=== PATIENT | male | born 1960 | race Caucasian/White ===

== ENCOUNTER 2016-09-20 10:42 | Inpatient (IN) | payer OTHER ==
[2016-09-20 11:54] VITALS: BMI 20.7
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
[2016-09-20] MEDS ORDERED: P-EPHED 60MG/TRIPROLIDI 2.5MG TABLET PO PRN (13:45)
[2016-09-20] MEDS ORDERED: hydrOXYzine PAMOATE 25 MG CAPSULE (FP) PO PRN (13:45)
[2016-09-20] MEDS ORDERED: MAGNESIUM HYDROX 2400MG/30ML ORAL SUSPENSION 30 ML CUP PO PRN (13:45)
[2016-09-20] MEDS ORDERED: MAG HYDROX/AL HYDROX/SIMETH 30 ML UNIT-DOSE CUP PO PRN (13:45)
[2016-09-20] MEDS ORDERED: LOPERAMIDE HCL 2 MG CAPSULE PO PRN (13:45)
[2016-09-20] MEDS ORDERED: MENTHOL/PHENOL 1 EACH UD MM PRN (13:45)
[2016-09-20] MEDS ORDERED: MAGNESIUM CITRATE 300 ML BOTTLE PO PRN (13:45)
[2016-09-20] MEDS ORDERED: ACETAMINOPHEN 325 MG TABLET (FP) PO PRN (13:45)
[2016-09-20] MEDS ORDERED: IBUPROFEN 400 MG TABLET (FP) PO PRN (13:45)
[2016-09-20] MEDS: NICOTINE 21 MG/24 HOURS TOPICAL PATCH TD SCH (15:43)
[2016-09-20 19:23] LABS: MCH 31.4 pg (25.7-33.7); MCHC 32.1 g/dl (32.0-35.9); MEAN CELL VOLUME 97.8 fl (80-96); MEAN PLT VOLUME 8.2 fl (7.5-11.1); PLATELET COUNT 470 K/MM3 (134-434); RDW 12.7 % (11.9-15.9); URINE APPEARANCE CLEAR; URINE BILIRUBIN NEGATIVE (NEGATIVE); URINE BLOOD NEGATIVE (NEGATIVE); URINE COLOR LT. YELLOW; URINE GLUCOSE (UA) NEGATIVE (NEGATIVE); URINE KETONE 1+ (NEGATIVE); URINE LEUK ESTERASE NEGATIVE (NEGATIVE); URINE NITRITE NEGATIVE (NEGATIVE); URINE PROTEIN NEGATIVE (NEGATIVE); URINE UROBILINOGEN 0.2 E.U/dl E.U./dl (0.2-1.0); WHITE BLOOD COUNT 14.5 K/mm3 (4.0-10.0)
[2016-09-20 19:35] LABS: ALBUMIN 3.8 g/dl (3.4-5.0); ANION GAP 8 (8-16); CALCIUM 9.2 mg/dL (8.5-10.1); CO2 28 mmol/L (21-32); CREATININE 0.9 mg/dL (0.7-1.3); GLUCOSE,RANDOM 107 mg/dL (74-106); SGOT/AST 24 U/L (15-37); SGPT/ALT 30 U/L (12-78)
[2016-09-20 19:37] LABS: ALK PHOS 79 U/L (45-117); BILIRUBIN,TOTAL 0.5 mg/dL (0.2-1.0); TOT PROT 7.5 g/dl (6.4-8.2)
[2016-09-20] MEDS: diphenhydrAMINE HCL 50 MG CAPSULE PO PRN (21:29)
[2016-09-20] MEDS: THIAMINE HCL 100 MG TABLET (FP) PO SCH (21:29)
[2016-09-20] MEDS: guaiFENesin/D-METHORPHAN HB 10 ML UNIT-DOSE CUPS PO PRN (23:47)
[2016-09-21] MEDS: guaiFENesin/D-METHORPHAN HB 10 ML UNIT-DOSE CUPS PO PRN ×2 (06:39→22:06)
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
[2016-09-21] MEDS: PRENATAL VITAMINS W/ FOLIC ACID TABLET (FP) PO SCH (09:57)
[2016-09-21] MEDS: NICOTINE 21 MG/24 HOURS TOPICAL PATCH TD SCH (09:57)
--- NOTE | 2016-09-21 10:21 | EKG ---
Test Reason : Blood Pressure : / mmHG Vent. Rate : 079 BPM Atrial Rate : 079 BPM P-R Int : 144 ms QRS Dur : 126 ms QT Int : 408 ms P-R-T Axes : 060 014 061 degrees QTc Int : 467 ms NORMAL SINUS RHYTHM NON-SPECIFIC INTRA-VENTRICULAR CONDUCTION BLOCK ABNORMAL ECG NO PREVIOUS ECGS AVAILABLE Confirmed by JACIEL LAURA MD ([id number]) on 09/21/2016 10:20:41 AM Referred By: Confirmed By:JACIEL LAURA MD
[2016-09-21] MEDS: THIAMINE HCL 100 MG TABLET (FP) PO SCH (21:18)
[2016-09-21] MEDS: QUEtiapine FUMARATE 50 MG TABLET PO SCH (21:18)
[2016-09-21] MEDS: diphenhydrAMINE HCL 50 MG CAPSULE PO PRN (21:18)
[2016-09-22] MEDS: PRENATAL VITAMINS W/ FOLIC ACID TABLET (FP) PO SCH (09:55)
[2016-09-22] MEDS: NICOTINE 21 MG/24 HOURS TOPICAL PATCH TD SCH (09:55)
[2016-09-22] MEDS: QUEtiapine FUMARATE 50 MG TABLET PO SCH ×2 (09:55→21:49)
[2016-09-22] MEDS: guaiFENesin/D-METHORPHAN HB 10 ML UNIT-DOSE CUPS PO PRN (09:56)
[2016-09-22 10:09] LABS: BASOPHIL 0.4 % (0-2.0); EOSINOPHIL 2.7 % (0-4.5); MCH 32.4 pg (25.7-33.7); MCHC 32.9 g/dl (32.0-35.9); MEAN CELL VOLUME 98.5 fl (80-96); MEAN PLT VOLUME 7.6 fl (7.5-11.1); NEUTROPHILS 59.4 % (42.8-82.8); PLATELET COUNT 540 K/MM3 (134-434); RDW 12.9 % (11.9-15.9); WHITE BLOOD COUNT 9.4 K/mm3 (4.0-10.0)
[2016-09-22] MEDS: THIAMINE HCL 100 MG TABLET (FP) PO SCH (21:49)
[2016-09-22] MEDS: diphenhydrAMINE HCL 50 MG CAPSULE PO PRN (21:49)
[2016-09-23] MEDS: PRENATAL VITAMINS W/ FOLIC ACID TABLET (FP) PO SCH (09:48)
[2016-09-23] MEDS: QUEtiapine FUMARATE 50 MG TABLET PO SCH ×2 (09:48→21:44)
[2016-09-23] MEDS: NICOTINE 21 MG/24 HOURS TOPICAL PATCH TD SCH (09:49)
[2016-09-23] MEDS: guaiFENesin/D-METHORPHAN HB 10 ML UNIT-DOSE CUPS PO PRN ×2 (09:50→21:45)
[2016-09-23] MEDS: THIAMINE HCL 100 MG TABLET (FP) PO SCH (21:44)
[2016-09-24] MEDS: PRENATAL VITAMINS W/ FOLIC ACID TABLET (FP) PO SCH (09:53)
[2016-09-24] MEDS: QUEtiapine FUMARATE 50 MG TABLET PO SCH ×2 (09:54→21:30)
[2016-09-24] MEDS: NICOTINE 21 MG/24 HOURS TOPICAL PATCH TD SCH (09:54)
[2016-09-24] MEDS: THIAMINE HCL 100 MG TABLET (FP) PO SCH (21:30)
[2016-09-25] MEDS: PRENATAL VITAMINS W/ FOLIC ACID TABLET (FP) PO SCH (10:14)
[2016-09-25] MEDS: NICOTINE 21 MG/24 HOURS TOPICAL PATCH TD SCH (10:14)
[2016-09-25] MEDS: QUEtiapine FUMARATE 50 MG TABLET PO SCH ×2 (10:14→21:05)
[2016-09-25] MEDS: THIAMINE HCL 100 MG TABLET (FP) PO SCH (21:05)
[2016-09-26 07:18] VITALS: BP 119/63; PULSE 66; TEMP 97.5
[2016-09-26] MEDS: PRENATAL VITAMINS W/ FOLIC ACID TABLET (FP) PO SCH (10:04)
[2016-09-26] MEDS: NICOTINE 21 MG/24 HOURS TOPICAL PATCH TD SCH (10:04)
[2016-09-26] MEDS: QUEtiapine FUMARATE 50 MG TABLET PO SCH (10:05)
--- NOTE | 2016-09-26 13:47 | PN ---
S Progress Note Note: patient left treatment ama, scripts forwarded to his pharmacy, patient did not want to wait for the psychiatrist.
== END 2016-09-26 10:55 | disposition left against medical advice (07) | DRG 894 ==
LOC: YASAS 10:42 → Y5N 13:49
PROVIDERS: ADMIT Psychiatry & Neurology Psychiatry; ATTEND Psychiatry & Neurology Psychiatry
PROC: HZ42ZZZ Group Counseling for Substance Abuse Treatment, Cognitive-Behavioral (ICD-10-PCS; principal; 2016-09-20)
DX: F10.230 Alcohol dependence with withdrawal, uncomplicated (principal); F14.20 Cocaine dependence, uncomplicated; F31.81 Bipolar II disorder; F17.210 Nicotine dependence, cigarettes, uncomplicated; F43.10 Post-traumatic stress disorder, unspecified; G47.00 Insomnia, unspecified
CPT/HCPCS: 36415; 80053; 81003; 85025; 85027; 86593; 93005; 93010

== ENCOUNTER 2018-11-17 12:27 | Inpatient (IN) | payer OTHER ==
[2018-11-17 15:40] VITALS: BMI 23.6
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
[2018-11-17] MEDS ORDERED: MAGNESIUM HYDROX 2400MG/30ML ORAL SUSPENSION 30 ML CUP PO PRN (17:46)
[2018-11-17] MEDS ORDERED: DICYCLOMINE HCL 10 MG CAPSULE PO PRN (17:46)
[2018-11-17] MEDS ORDERED: MAGNESIUM CITRATE 300 ML BOTTLE PO PRN (17:46)
[2018-11-17] MEDS ORDERED: MAG HYDROX/AL HYDROX/SIMETH 30 ML UNIT-DOSE CUP PO PRN (17:46)
[2018-11-17] MEDS ORDERED: NICOTINE POLACRILEX 2 MG GUM BUC PRN (17:46)
[2018-11-17] MEDS ORDERED: chlordiazePOXIDE HCL 25 MG CAPSULE PO PRN (17:46)
[2018-11-17] MEDS ORDERED: IBUPROFEN 400 MG TABLET (FP) PO PRN (17:46)
[2018-11-17] MEDS ORDERED: MENTHOL/PHENOL 1 EACH UD MM PRN (17:46)
[2018-11-17] MEDS ORDERED: ACETAMINOPHEN 325 MG TABLET (FP) PO PRN ×2 (17:46)
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
[2018-11-17] MEDS ORDERED: QUEtiapine FUMARATE 50 MG TABLET PO SCH (22:00)
[2018-11-17] MEDS: chlordiazePOXIDE HCL 25 MG CAPSULE PO SCH (22:46)
[2018-11-17] MEDS: THIAMINE HCL 100 MG TABLET (FP) PO SCH (22:46)
[2018-11-17] MEDS: MELATONIN 5 MG TABLETS PO PRN (22:48)
[2018-11-18] MEDS: chlordiazePOXIDE HCL 25 MG CAPSULE PO SCH ×4 (07:21→22:15)
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
[2018-11-18] MEDS ORDERED: hydrOXYzine PAMOATE 50 MG CAPSULE (FP) PO PRN (09:46)
[2018-11-18] MEDS: PRENATAL VITAMINS W/ FOLIC ACID TABLET (FP) PO SCH (10:14)
[2018-11-18 11:07] LABS: ALBUMIN 3.8 g/dl (3.4-5.0); ALK PHOS 67 U/L (45-117); ANION GAP 7 MMOL/L (8-16); BILIRUBIN,TOTAL 0.6 mg/dL (0.2-1); BLOOD UREA NITROGEN 21 mg/dL (7-18); CALCIUM 8.9 mg/dL (8.5-10.1); CHLORIDE 103 mmol/L (98-107); CO2 30 mmol/L (21-32); CREATININE 1.1 mg/dL (0.55-1.3); GLUCOSE,RANDOM 84 mg/dL (74-106); POTASSIUM 3.9 mmol/L (3.5-5.1); SGOT/AST 37 U/L (15-37); SGPT/ALT 32 U/L (13-61); SODIUM 140 mmol/L (136-145); TOT PROT 6.7 g/dl (6.4-8.2)
[2018-11-18 11:29] LABS: HEMATOCRIT 37.7 % (35.4-49); MCH 33.6 pg (25.7-33.7); MCHC 34.5 g/dl (32.0-35.9); MEAN CELL VOLUME 97.4 fl (80-96); MEAN PLT VOLUME 7.8 fl (7.5-11.1); PLATELET COUNT 324 K/MM3 (134-434); RBC 3.87 M/mm3 (4.00-5.60); RDW 12.8 % (11.9-15.9); WHITE BLOOD COUNT 10.1 K/mm3 (4.0-10.0)
--- NOTE | 2018-11-18 15:16 | PN ---
[facility] CIWA - CIWA Score Nausea/Vomitin-Mild Nausea/No Vomiting Muscle Tremors: 4-Moderate,w/Arms Extend Anxiety: 3 Agitation: 4-Moderately Restless Paroxysmal Sweats: 1-Minimal Palms Moist Orientation: 3-Disoriented Date>2 days Tacttile Disturbances: 0-None Auditory Disturbances: 0-None Visual Disturbances: 0-None Headache: 1-Very Mild CIWA-Ar Total Score: 17 BHS Progress Note (SOAP) Subjective: tremor sweating restlessness mild headache otherwise doing ok Objective: 11/18/18 15:15 Vital Signs Temperature 96.1 F L 11/18/18 13:15 Pulse Rate 78 11/18/18 13:15 Respiratory Rate 18 11/18/18 13:15 Blood Pressure 111/68 11/18/18 13:15 O2 Sat by Pulse Oximetry (%) Laboratory Last Values WBC 10.1 K/mm3 (4.0-10.0) H 11/18/18 08:00 RBC 3.87 M/mm3 (4.00-5.60) L 11/18/18 08:00 Hgb 13.0 GM/dL (11.7-16.9) 11/18/18 08:00 Hct 37.7 % (35.4-49) 11/18/18 08:00 MCV 97.4 fl (80-96) H 11/18/18 08:00 MCH 33.6 pg (25.7-33.7) 11/18/18 08:00 MCHC 34.5 g/dl (32.0-35.9) 11/18/18 08:00 RDW 12.8 % (11.9-15.9) 11/18/18 08:00 Plt Count 324 K/MM3 (134-434) D 11/18/18 08:00 MPV 7.8 fl (7.5-11.1) 11/18/18 08:00 Sodium 140 mmol/L (136-145) 11/18/18 08:00 Potassium 3.9 mmol/L (3.5-5.1) 11/18/18 08:00 Chloride 103 mmol/L (98-107) 11/18/18 08:00 Carbon Dioxide 30 mmol/L (21-32) 11/18/18 08:00 Anion Gap 7 MMOL/L (8-16) L 11/18/18 08:00 BUN 21 mg/dL (7-18) H 11/18/18 08:00 Creatinine 1.1 mg/dL (0.55-1.3) 11/18/18 08:00 Creat Clearance w eGFR > 60 (>60) 11/18/18 08:00 Random Glucose 84 mg/dL (74-106) 11/18/18 08:00 Calcium 8.9 mg/dL (8.5-10.1) 11/18/18 08:00 Total Bilirubin 0.6 mg/dL (0.2-1) 11/18/18 08:00 AST 37 U/L (15-37) 11/18/18 08:00 ALT 32 U/L (13-61) 11/18/18 08:00 Alkaline Phosphatase 67 U/L (45-117) 11/18/18 08:00 Total Protein 6.7 g/dl (6.4-8.2) 11/18/18 08:00 Albumin 3.8 g/dl (3.4-5.0) 11/18/18 08:00 lab noted Assessment: 11/18/18 15:15 alcohol withdrawal sx Plan: continue detox
[2018-11-18] MEDS: QUEtiapine FUMARATE 100 MG TABLET (FP) PO SCH (22:15)
[2018-11-18] MEDS: MELATONIN 5 MG TABLETS PO PRN (22:15)
[2018-11-18] MEDS: THIAMINE HCL 100 MG TABLET (FP) PO SCH (22:15)
[2018-11-19] MEDS: chlordiazePOXIDE HCL 25 MG CAPSULE PO SCH ×3 (06:02→18:05)
[2018-11-19] MEDS: PRENATAL VITAMINS W/ FOLIC ACID TABLET (FP) PO SCH (10:22)
--- NOTE | 2018-11-19 10:31 | PN ---
S CIWA - CIWA Score Nausea/Vomitin-Mild Nausea/No Vomiting Muscle Tremors: 3 Anxiety: 2 Agitation: 3 Paroxysmal Sweats: 1-Minimal Palms Moist Orientation: 1-Uncertain about Date Tacttile Disturbances: 0-None Auditory Disturbances: 0-None Visual Disturbances: 0-None Headache: 1-Very Mild CIWA-Ar Total Score: 12 S Progress Note (SOAP) Subjective: tremor sweating anxiousness headaches Objective: 11/19/18 10:39 Vital Signs Temperature 98.0 F 11/19/18 09:53 Pulse Rate 86 11/19/18 09:53 Respiratory Rate 16 11/19/18 09:53 Blood Pressure 102/62 11/19/18 09:53 O2 Sat by Pulse Oximetry (%) Laboratory Last Values WBC 10.1 K/mm3 (4.0-10.0) H 11/18/18 08:00 RBC 3.87 M/mm3 (4.00-5.60) L 11/18/18 08:00 Hgb 13.0 GM/dL (11.7-16.9) 11/18/18 08:00 Hct 37.7 % (35.4-49) 11/18/18 08:00 MCV 97.4 fl (80-96) H 11/18/18 08:00 MCH 33.6 pg (25.7-33.7) 11/18/18 08:00 MCHC 34.5 g/dl (32.0-35.9) 11/18/18 08:00 RDW 12.8 % (11.9-15.9) 11/18/18 08:00 Plt Count 324 K/MM3 (134-434) D 11/18/18 08:00 MPV 7.8 fl (7.5-11.1) 11/18/18 08:00 Sodium 140 mmol/L (136-145) 11/18/18 08:00 Potassium 3.9 mmol/L (3.5-5.1) 11/18/18 08:00 Chloride 103 mmol/L (98-107) 11/18/18 08:00 Carbon Dioxide 30 mmol/L (21-32) 11/18/18 08:00 Anion Gap 7 MMOL/L (8-16) L 11/18/18 08:00 BUN 21 mg/dL (7-18) H 11/18/18 08:00 Creatinine 1.1 mg/dL (0.55-1.3) 11/18/18 08:00 Creat Clearance w eGFR > 60 (>60) 11/18/18 08:00 Random Glucose 84 mg/dL (74-106) 11/18/18 08:00 Calcium 8.9 mg/dL (8.5-10.1) 11/18/18 08:00 Total Bilirubin 0.6 mg/dL (0.2-1) 11/18/18 08:00 AST 37 U/L (15-37) 11/18/18 08:00 ALT 32 U/L (13-61) 11/18/18 08:00 Alkaline Phosphatase 67 U/L (45-117) 11/18/18 08:00 Total Protein 6.7 g/dl (6.4-8.2) 11/18/18 08:00 Albumin 3.8 g/dl (3.4-5.0) 11/18/18 08:00 RPR Titer Nonreactive (NONREACTIVE) 11/18/18 08:00 lab noted Assessment: 11/19/18 10:40 alcohol withdrawal sx Plan: continue detox
[2018-11-19] MEDS: THIAMINE HCL 100 MG TABLET (FP) PO SCH (22:06)
[2018-11-19] MEDS: QUEtiapine FUMARATE 100 MG TABLET (FP) PO SCH (22:06)
[2018-11-19] MEDS: MELATONIN 5 MG TABLETS PO PRN (22:06)
[2018-11-19] MEDS: chlordiazePOXIDE HCL 10 MG CAPSULE PO SCH (22:06)
[2018-11-19] MEDS ORDERED: chlordiazePOXIDE HCL 10 MG CAPSULE PO PRN (23:00)
[2018-11-20] MEDS: chlordiazePOXIDE HCL 10 MG CAPSULE PO SCH ×2 (06:32→11:07)
[2018-11-20] MEDS: PRENATAL VITAMINS W/ FOLIC ACID TABLET (FP) PO SCH (10:33)
--- NOTE | 2018-11-20 10:54 | PN ---
[facility] CIWA - CIWA Score Nausea/Vomitin-Mild Nausea/No Vomiting Muscle Tremors: 1-None Visible, but [place] Anxiety: 1-Mildly Anxious Agitation: 1-Slight > Activity Paroxysmal Sweats: 1-Minimal Palms Moist Orientation: 1-Uncertain about Date Tacttile Disturbances: 0-None Auditory Disturbances: 0-None Visual Disturbances: 0-None Headache: 1-Very Mild CIWA-Ar Total Score: 7 S Progress Note (SOAP) Subjective: feeling better less tremor mild sweating more energy discuss aftercare with staff Objective: 11/20/18 10:55 Vital Signs Temperature 96.1 F L 11/20/18 09:41 Pulse Rate 79 11/20/18 09:41 Respiratory Rate 18 11/20/18 09:41 Blood Pressure 92/52 L 11/20/18 09:41 O2 Sat by Pulse Oximetry (%) Laboratory Last Values WBC 10.1 K/mm3 (4.0-10.0) H 11/18/18 08:00 RBC 3.87 M/mm3 (4.00-5.60) L 11/18/18 08:00 Hgb 13.0 GM/dL (11.7-16.9) 11/18/18 08:00 Hct 37.7 % (35.4-49) 11/18/18 08:00 MCV 97.4 fl (80-96) H 11/18/18 08:00 MCH 33.6 pg (25.7-33.7) 11/18/18 08:00 MCHC 34.5 g/dl (32.0-35.9) 11/18/18 08:00 RDW 12.8 % (11.9-15.9) 11/18/18 08:00 Plt Count 324 K/MM3 (134-434) D 11/18/18 08:00 MPV 7.8 fl (7.5-11.1) 11/18/18 08:00 Sodium 140 mmol/L (136-145) 11/18/18 08:00 Potassium 3.9 mmol/L (3.5-5.1) 11/18/18 08:00 Chloride 103 mmol/L (98-107) 11/18/18 08:00 Carbon Dioxide 30 mmol/L (21-32) 11/18/18 08:00 Anion Gap 7 MMOL/L (8-16) L 11/18/18 08:00 BUN 21 mg/dL (7-18) H 11/18/18 08:00 Creatinine 1.1 mg/dL (0.55-1.3) 11/18/18 08:00 Creat Clearance w eGFR > 60 (>60) 11/18/18 08:00 Random Glucose 84 mg/dL (74-106) 11/18/18 08:00 Calcium 8.9 mg/dL (8.5-10.1) 11/18/18 08:00 Total Bilirubin 0.6 mg/dL (0.2-1) 11/18/18 08:00 AST 37 U/L (15-37) 11/18/18 08:00 ALT 32 U/L (13-61) 11/18/18 08:00 Alkaline Phosphatase 67 U/L (45-117) 11/18/18 08:00 Total Protein 6.7 g/dl (6.4-8.2) 11/18/18 08:00 Albumin 3.8 g/dl (3.4-5.0) 11/18/18 08:00 RPR Titer Nonreactive (NONREACTIVE) 11/18/18 08:00 lab noted Assessment: 11/20/18 10:56 mild alcohol withdrawal sx Plan: continue detox
--- NOTE | 2018-11-20 11:46 | DS ---
[facility] Detox Discharge Summary Admission Date: 11/17/18 Discharge Date: 11/20/18 - History Present History: Alcohol Dependence Additional Comments: 58 years old male admitted on 11/17/18 for alcohol withdrawal stabilization feeling better today preferred to begin alcohol rehab today and taking care of family issues alert no acute distress denies suicidal ideation patient has confident maintaining sober through community self help support patient agrees to utilize [facility] services for medical and mental issues - Physical Exam Results Vital Signs: Vital Signs Temperature 96.1 F L 11/20/18 09:41 Pulse Rate 79 11/20/18 09:41 Respiratory Rate 18 11/20/18 09:41 Blood Pressure 92/52 L 11/20/18 09:41 O2 Sat by Pulse Oximetry (%) Pertinent Admission Physical Exam Findings: alcohol withdrawal sx Laboratory Last Values WBC 10.1 K/mm3 (4.0-10.0) H 11/18/18 08:00 RBC 3.87 M/mm3 (4.00-5.60) L 11/18/18 08:00 Hgb 13.0 GM/dL (11.7-16.9) 11/18/18 08:00 Hct 37.7 % (35.4-49) 11/18/18 08:00 MCV 97.4 fl (80-96) H 11/18/18 08:00 MCH 33.6 pg (25.7-33.7) 11/18/18 08:00 MCHC 34.5 g/dl (32.0-35.9) 11/18/18 08:00 RDW 12.8 % (11.9-15.9) 11/18/18 08:00 Plt Count 324 K/MM3 (134-434) D 11/18/18 08:00 MPV 7.8 fl (7.5-11.1) 11/18/18 08:00 Sodium 140 mmol/L (136-145) 11/18/18 08:00 Potassium 3.9 mmol/L (3.5-5.1) 11/18/18 08:00 Chloride 103 mmol/L (98-107) 11/18/18 08:00 Carbon Dioxide 30 mmol/L (21-32) 11/18/18 08:00 Anion Gap 7 MMOL/L (8-16) L 11/18/18 08:00 BUN 21 mg/dL (7-18) H 11/18/18 08:00 Creatinine 1.1 mg/dL (0.55-1.3) 11/18/18 08:00 Creat Clearance w eGFR > 60 (>60) 11/18/18 08:00 Random Glucose 84 mg/dL (74-106) 11/18/18 08:00 Calcium 8.9 mg/dL (8.5-10.1) 11/18/18 08:00 Total Bilirubin 0.6 mg/dL (0.2-1) 11/18/18 08:00 AST 37 U/L (15-37) 11/18/18 08:00 ALT 32 U/L (13-61) 11/18/18 08:00 Alkaline Phosphatase 67 U/L (45-117) 11/18/18 08:00 Total Protein 6.7 g/dl (6.4-8.2) 11/18/18 08:00 Albumin 3.8 g/dl (3.4-5.0) 11/18/18 08:00 RPR Titer Nonreactive (NONREACTIVE) 11/18/18 08:00 lab noted - Treatment Hospital Course: Detox Protocol Followed, Detoxed Safely, Responded well, Discharged Condition Good, Rehab Referral Accepted Patient has Accepted a Rehab Referral to: community self help - Medication Discharge Medications: Ambulatory Orders Quetiapine Fumarate [Seroquel -] 50 mg PO BID #60 tablet 09/26/16 - Diagnosis (1) Alcohol dependence with uncomplicated withdrawal Current Visit: Yes Status: Acute (2) Substance induced mood disorder Current Visit: Yes Status: Suspected (3) Nicotine dependence Current Visit: Yes Status: Acute Qualifiers: Nicotine product type: cigarettes Substance use status: in withdrawal Qualified Code(s): F17.213 - Nicotine dependence, cigarettes, with withdrawal (4) Weight loss Current Visit: Yes Status: Acute (5) Bipolar II disorder Current Visit: Yes Status: Suspected - AMA Did Patient Leave Against Medical Advice: No
[2018-11-20 13:23] VITALS: BP 116/75; PULSE 88; TEMP 96.2
[2018-11-20] MEDS ORDERED: chlordiazePOXIDE HCL 10 MG CAPSULE PO SCH (23:00)
== END 2018-11-20 12:25 | disposition home or self-care (01) | DRG 897 ==
LOC: YASAS 12:27 → Y3N 20:20
PROVIDERS: ADMIT Surgery; ATTEND Surgery
PROC: HZ2ZZZZ Detoxification Services for Substance Abuse Treatment (ICD-10-PCS; principal; 2018-11-17)
DX: F10.230 Alcohol dependence with withdrawal, uncomplicated (principal); F14.20 Cocaine dependence, uncomplicated; F19.282 Other psychoactive substance dependence with psychoactive substance-induced sleep disorder; F31.81 Bipolar II disorder; F17.210 Nicotine dependence, cigarettes, uncomplicated; F19.24 Other psychoactive substance dependence with psychoactive substance-induced mood disorder; F43.10 Post-traumatic stress disorder, unspecified; R63.4 Abnormal weight loss; Z68.23 Body mass index [BMI] 23.0-23.9, adult; Z92.29 Personal history of other drug therapy
CPT/HCPCS: 36415; 71046-TC-FY; 80053; 85027; 86593

== ENCOUNTER 2019-06-13 11:53 | Inpatient (IN) | payer OTHER ==
[2019-06-13 13:46] VITALS: BMI 21.2
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
[2019-06-13] MEDS ORDERED: hydrOXYzine PAMOATE 25 MG CAPSULE (FP) PO PRN (15:02)
[2019-06-13] MEDS ORDERED: MAG HYDROX/AL HYDROX/SIMETH 30 ML UNIT-DOSE CUP PO PRN (15:02)
[2019-06-13] MEDS ORDERED: ACETAMINOPHEN 325 MG TABLET (FP) PO PRN ×2 (15:02)
[2019-06-13] MEDS ORDERED: IBUPROFEN 400 MG TABLET (FP) PO PRN (15:02)
[2019-06-13] MEDS ORDERED: BISMUTH SUBSALICYLATE 524 MG/30 ML UD PO PRN (15:02)
[2019-06-13] MEDS ORDERED: MAGNESIUM CITRATE 300 ML BOTTLE PO PRN (15:02)
[2019-06-13] MEDS ORDERED: MENTHOL/PHENOL 1 EACH UD MM PRN (15:02)
[2019-06-13] MEDS ORDERED: MAGNESIUM HYDROX 2400MG/30ML ORAL SUSPENSION 30 ML CUP PO PRN (15:02)
[2019-06-13] MEDS ORDERED: chlordiazePOXIDE HCL 10 MG CAPSULE PO PRN (15:03)
[2019-06-13] MEDS: THIAMINE HCL 100 MG TABLET (FP) PO SCH (21:51)
[2019-06-13] MEDS: MELATONIN 5 MG TABLETS PO PRN (21:51)
[2019-06-13] MEDS: chlordiazePOXIDE HCL 25 MG CAPSULE PO SCH (21:51)
[2019-06-14] MEDS: chlordiazePOXIDE HCL 25 MG CAPSULE PO SCH ×3 (06:19→20:55)
[2019-06-14] MEDS: PRENATAL VITAMINS W/ FOLIC ACID TABLET (FP) PO SCH (09:55)
[2019-06-14 10:36] LABS: HEMATOCRIT 42.5 % (35.4-49); HEMOGLOBIN 14.2 GM/dL (11.7-16.9); MCH 33.4 pg (25.7-33.7); MCHC 33.5 g/dl (32.0-35.9); MEAN CELL VOLUME 99.7 fl (80-96); PLATELET COUNT 389 K/MM3 (134-434); RBC 4.26 M/mm3 (4.00-5.60); RDW 12.8 % (11.9-15.9); WHITE BLOOD COUNT 6.2 K/mm3 (4.0-10.0)
[2019-06-14 10:43] LABS: ALBUMIN 3.5 g/dl (3.4-5.0); BILIRUBIN,TOTAL 0.7 mg/dL (0.2-1); BLOOD UREA NITROGEN 13.4 mg/dL (7-18); CALCIUM 9.3 mg/dL (8.5-10.1); CREATININE 0.9 mg/dL (0.55-1.3); TOT PROT 6.5 g/dl (6.4-8.2)
--- NOTE | 2019-06-14 11:37 | PN ---
S CIWA - CIWA Score Nausea/Vomitin-No Nausea/No Vomiting Muscle Tremors: 3 Anxiety: 3 Agitation: 3 Paroxysmal Sweats: 2 Orientation: 0-Oriented Tacttile Disturbances: 0-None Auditory Disturbances: 0-None Visual Disturbances: 0-None Headache: 0-None Present CIWA-Ar Total Score: 11 BHS Progress Note (SOAP) Subjective: sweats shakes interrupted sleep body aches I need to see psych for my ptsd Objective: 06/14/19 11:35 Vital Signs Temperature 98.1 F 06/14/19 10:15 Pulse Rate 82 06/14/19 10:15 Respiratory Rate 18 06/14/19 10:15 Blood Pressure 114/65 06/14/19 10:15 O2 Sat by Pulse Oximetry (%) Laboratory Tests 06/14/19 06/14/19 08:00 08:00 WBC 6.2 RBC 4.26 Hgb 14.2 Hct 42.5 MCV 99.7 H MCH 33.4 MCHC 33.5 RDW 12.8 Plt Count 389 D MPV 8.0 Sodium 140 Potassium 5.0 Chloride 106 Carbon Dioxide 28 Anion Gap 6 L BUN 13.4 Creatinine 0.9 Est GFR (CKD-EPI)AfAm 108.73 Est GFR (CKD-EPI)NonAf 93.82 Random Glucose 85 Calcium 9.3 Total Bilirubin 0.7 AST 16 ALT 20 Alkaline Phosphatase 70 Total Protein 6.5 Albumin 3.5 labs noted aaox3 ambulating no acute distress Assessment: 06/14/19 11:36 withdrawals Plan: continue detox increase fluids pending labs
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
[2019-06-14] MEDS: MELATONIN 5 MG TABLETS PO PRN (20:54)
[2019-06-14] MEDS: QUEtiapine FUMARATE 50 MG TABLET PO SCH (21:10)
[2019-06-14] MEDS: THIAMINE HCL 100 MG TABLET (FP) PO SCH (21:10)
[2019-06-15] MEDS: chlordiazePOXIDE 5 MG CAPSULE PO SCH ×3 (06:46→22:00)
[2019-06-15] MEDS: PRENATAL VITAMINS W/ FOLIC ACID TABLET (FP) PO SCH (10:30)
--- NOTE | 2019-06-15 12:58 | PN ---
S CIWA - CIWA Score Nausea/Vomitin-No Nausea/No Vomiting Muscle Tremors: None Anxiety: 2 Agitation: 0-Normal Activity Paroxysmal Sweats: 2 Orientation: 0-Oriented Tacttile Disturbances: 0-None Auditory Disturbances: 0-None Visual Disturbances: 0-None Headache: 2-Mild CIWA-Ar Total Score: 6 BHS Progress Note (SOAP) Subjective: c/o headache, sweats, and anxiety. Objective: 06/15/19 12:57 Vital Signs 06/15/19 06/15/19 06:00 09:41 Temperature 97.9 F 97.1 F L Pulse Rate 63 50 L Respiratory 16 18 Rate Blood Pressure 100/58 L 127/74 Lab Results WBC 6.2 K/mm3 (4.0-10.0) 06/14/19 08:00 RBC 4.26 M/mm3 (4.00-5.60) 06/14/19 08:00 Hgb 14.2 GM/dL (11.7-16.9) 06/14/19 08:00 Hct 42.5 % (35.4-49) 06/14/19 08:00 MCV 99.7 fl (80-96) H 06/14/19 08:00 MCHC 33.5 g/dl (32.0-35.9) 06/14/19 08:00 RDW 12.8 % (11.9-15.9) 06/14/19 08:00 Plt Count 389 K/MM3 (134-434) D 06/14/19 08:00 Sodium 140 mmol/L (136-145) 06/14/19 08:00 Potassium 5.0 mmol/L (3.5-5.1) 06/14/19 08:00 Chloride 106 mmol/L (98-107) 06/14/19 08:00 Carbon Dioxide 28 mmol/L (21-32) 06/14/19 08:00 Anion Gap 6 MMOL/L (8-16) L 06/14/19 08:00 BUN 13.4 mg/dL (7-18) 06/14/19 08:00 Creatinine 0.9 mg/dL (0.55-1.3) 06/14/19 08:00 Random Glucose 85 mg/dL (74-106) 06/14/19 08:00 Calcium 9.3 mg/dL (8.5-10.1) 06/14/19 08:00 Labs noted. Assessment: 06/15/19 12:58 AOX3, in no acute respiratory distress. Full ROM, ambulating in the unit. Withdrawal symptoms. For discharge tomorrow. 06/15/19 12:58 Plan: continue detox. D/C in AM.
--- NOTE | 2019-06-15 17:03 | PN ---
S Progress Note Note: Psychiatric nurse practitioner note: Patient scheduled for discharge tomorrow. A 30 day script of seroquel 50mg HS was electronically sent to [facility] [address] [place] [address].
[2019-06-15] MEDS: QUEtiapine FUMARATE 50 MG TABLET PO SCH (22:00)
[2019-06-15] MEDS: THIAMINE HCL 100 MG TABLET (FP) PO SCH (22:00)
[2019-06-15] MEDS: MELATONIN 5 MG TABLETS PO PRN (22:01)
[2019-06-16] MEDS ORDERED: chlordiazePOXIDE HCL 10 MG CAPSULE PO ONE (05:00)
[2019-06-16 06:24] VITALS: BP 122/75; PULSE 64; TEMP 97.3
[2019-06-16] MEDS: PRENATAL VITAMINS W/ FOLIC ACID TABLET (FP) PO SCH (10:23)
--- NOTE | 2019-06-16 14:17 | PN ---
[facility] CIWA - CIWA Score Nausea/Vomitin-No Nausea/No Vomiting Muscle Tremors: 1-None Visible, but [place] Anxiety: 1-Mildly Anxious Agitation: 0-Normal Activity Paroxysmal Sweats: No Perspiration Orientation: 0-Oriented Tacttile Disturbances: 0-None Auditory Disturbances: 0-None Visual Disturbances: 0-None Headache: 0-None Present CIWA-Ar Total Score: 2 BHS Progress Note (SOAP) Subjective: no complaint offered Objective: 06/16/19 14:16 Vital Signs Temperature 97.3 F L 06/16/19 06:00 Pulse Rate 64 06/16/19 06:00 Respiratory Rate 16 06/16/19 06:00 Blood Pressure 122/75 06/16/19 06:00 O2 Sat by Pulse Oximetry (%) Assessment: 06/16/19 14:16 detox completed Plan: continue detox
--- NOTE | 2019-06-16 14:22 | DS ---
[facility] Detox Discharge Summary Admission Date: 06/13/19 Discharge Date: 06/16/19 - History Additional Comments: patient completed detox For d/c, will continue aftercare by attending AA meetings. Gait steady, in no distress. Reminded patient to pick his seroquel from the pharmacy, he verbalizede understanding. Denies any other need for med refil. - Physical Exam Results Vital Signs: Vital Signs Temperature 97.3 F L 06/16/19 06:00 Pulse Rate 64 06/16/19 06:00 Respiratory Rate 16 06/16/19 06:00 Blood Pressure 122/75 06/16/19 06:00 O2 Sat by Pulse Oximetry (%) Pertinent Admission Physical Exam Findings: withdrawal sx - Treatment Hospital Course: Detox Protocol Followed, Detoxed Safely, Responded well, Discharged Condition Good - Medication Discharge Medications: Ambulatory Orders Quetiapine Fumarate [Seroquel -] 50 mg PO BID #60 tablet 09/26/16 Quetiapine Fumarate [Seroquel -] 50 mg PO HS #30 tablet 06/15/19 - Diagnosis (1) Alcohol dependence with uncomplicated withdrawal Status: Acute (2) Amphetamine dependence Status: Acute (3) Substance-induced sleep disorder Status: Acute (4) Weight loss Status: Acute (5) Cocaine dependence Status: Chronic Qualifiers: Substance use status: uncomplicated Qualified Code(s): F14.20 - Cocaine dependence, uncomplicated (6) Depression Status: Chronic (7) Insomnia Status: Chronic Qualifiers: Insomnia type: alcohol-induced Qualified Code(s): F10.982 - Alcohol use, unspecified with alcohol-induced sleep disorder (8) Mood disorder Status: Chronic (9) Nicotine dependence Status: Chronic Qualifiers: Nicotine product type: cigarettes (10) PTSD (post-traumatic stress disorder) Status: Chronic - AMA Did Patient Leave Against Medical Advice: No
== END 2019-06-16 12:30 | disposition home or self-care (01) | DRG 897 ==
LOC: YASAS 11:53 → Y6N 16:40
PROVIDERS: ADMIT Surgery; ATTEND Surgery
PROC: HZ2ZZZZ Detoxification Services for Substance Abuse Treatment (ICD-10-PCS; principal; 2019-06-13)
DX: F10.230 Alcohol dependence with withdrawal, uncomplicated (principal); F15.20 Other stimulant dependence, uncomplicated; F14.20 Cocaine dependence, uncomplicated; F19.282 Other psychoactive substance dependence with psychoactive substance-induced sleep disorder; F10.220 Alcohol dependence with intoxication, uncomplicated; F10.282 Alcohol dependence with alcohol-induced sleep disorder; F17.210 Nicotine dependence, cigarettes, uncomplicated; F39 Unspecified mood [affective] disorder; F43.10 Post-traumatic stress disorder, unspecified; F32.9 Major depressive disorder, single episode, unspecified; R63.4 Abnormal weight loss; Z91.013 Allergy to seafood
CPT/HCPCS: 36415; 80053; 85027; 86593

== ENCOUNTER 2020-03-09 11:02 | Inpatient (IN) | payer OTHER ==
--- NOTE | 2020-03-09 11:21 | BHS.RME ---
Substance Use & Tx History - Substance Use History Alcohol Substance amount: 2 pints Vodka, 20 x 12 ounce beer Frequency of use: Daily Substance route: Oral Date of Last Use: 03/09/20 (Began age 12 y. No seiuzres. No blackouts. 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) Cocaine- Powder Substance amount: $150 Frequency of use: Daily Substance route: Inhalation (ex: sniffing or snorting) Date of Last Use: 03/08/20 (First use age 29y) - Last Treatment Date of last treatment: 06/13- 06/16/2019 Treatment type: Substance Use Disorder ([facility]) Where was last treatment: Detox Physical/Psych/Mental Status - Behavior General Behavior: Increased activity (restlessness, agitation) Eye Contact: Normal - Cooperativeness Cooperativeness: Cooperative - Thinking Thought Processes: Tight Thought content: Future oriented - Physical Health Problems Is patient presently having any pain?: No Does patient presently have any injuries (include location): No Does patient currently have a fever: No CIWA Nausea/Vomitin-No Nausea/No Vomiting Muscle Tremors: 2 Anxiety: 2 Agitation: 2 Paroxysmal Sweats: 3 Orientation: 0-Oriented Tacttile Disturbances: 0-None Auditory Disturbances: 0-None Visual Disturbances: 0-None Headache: 0-None Present CIWA-Ar Total Score: 9
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
[2020-03-09 11:56] VITALS: BMI 22.1
[2020-03-09] MEDS ORDERED: BISMUTH SUBSALICYLATE 262 MG/15 ML BTL PO PRN (11:59)
[2020-03-09] MEDS ORDERED: MAGNESIUM HYDROX 2400MG/30ML ORAL SUSPENSION 30 ML CUP PO PRN (11:59)
[2020-03-09] MEDS ORDERED: METHOCARBAMOL 500 MG TABLET PO PRN (11:59)
[2020-03-09] MEDS ORDERED: IBUPROFEN 400 MG TABLET (FP) PO PRN (11:59)
[2020-03-09] MEDS ORDERED: ACETAMINOPHEN 325 MG TABLET (FP) PO PRN ×2 (11:59)
[2020-03-09] MEDS ORDERED: NICOTINE POLACRILEX 2 MG GUM BUC PRN (11:59)
[2020-03-09] MEDS ORDERED: MENTHOL/PHENOL 1 EACH UD MM PRN (11:59)
[2020-03-09] MEDS ORDERED: ONDANSETRON *ODT* 4 MG TABLET SL ONE (11:59)
[2020-03-09] MEDS ORDERED: chlordiazePOXIDE HCL 25 MG CAPSULE PO PRN (11:59)
[2020-03-09] MEDS ORDERED: MAG HYDROX/AL HYDROX/SIMETH 30 ML UNIT-DOSE CUP PO PRN (11:59)
[2020-03-09] MEDS ORDERED: MAGNESIUM CITRATE 300 ML BOTTLE PO PRN (11:59)
[2020-03-09] MEDS: chlordiazePOXIDE HCL 25 MG CAPSULE PO SCH ×3 (12:52→22:10)
[2020-03-09] MEDS ORDERED: hydrOXYzine PAMOATE 25 MG CAPSULE (FP) PO PRN (12:52)
[2020-03-09] MEDS: NICOTINE 7 MG/24 HOURS TOPICAL PATCH TD SCH (12:55)
[2020-03-09] MEDS: PRENATAL VITAMINS W/ FOLIC ACID TABLET (FP) PO SCH (12:56)
[2020-03-09] MEDS ORDERED: hydrOXYzine PAMOATE 25 MG CAPSULE (FP) PO SCH (14:00)
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
[2020-03-09 17:21] LABS: HEMATOCRIT 40.7 % (35.4-49); HEMOGLOBIN 13.5 GM/dL (11.7-16.9); MCH 33.5 pg (25.7-33.7); MCHC 33.1 g/dl (32.0-35.9); MEAN CELL VOLUME 101.3 fl (80-96); MEAN PLT VOLUME 7.9 fl (7.5-11.1); PLATELET COUNT 368 K/MM3 (134-434); RBC 4.02 M/mm3 (4.00-5.60); RDW 13.4 % (11.9-15.9); WHITE BLOOD COUNT 8.4 K/mm3 (4.0-10.0)
[2020-03-09 17:28] LABS: BILIRUBIN,TOTAL 0.2 mg/dL (0.2-1); CALCIUM 9.5 mg/dL (8.5-10.1); POTASSIUM 4.5 mmol/L (3.5-5.1); TOT PROT 7.2 g/dl (6.4-8.2)
[2020-03-09] MEDS: THIAMINE HCL 100 MG TABLET (FP) PO SCH (22:10)
[2020-03-09] MEDS: QUEtiapine FUMARATE 100 MG TABLET (FP) PO SCH (22:10)
[2020-03-09] MEDS: MELATONIN 5 MG TABLETS PO SCH (22:12)
[2020-03-10] MEDS: chlordiazePOXIDE HCL 25 MG CAPSULE PO SCH ×4 (05:15→22:19)
--- NOTE | 2020-03-10 09:57 | PN ---
[facility] CIWA - CIWA Score Nausea/Vomitin-Mild Nausea/No Vomiting Muscle Tremors: 2 Anxiety: 2 Agitation: 2 Paroxysmal Sweats: No Perspiration Orientation: 0-Oriented Tacttile Disturbances: 1-Very Mild Itch/Numbness Auditory Disturbances: 0-None Visual Disturbances: 0-None Headache: 2-Mild CIWA-Ar Total Score: 10 S Progress Note (SOAP) Subjective: alert,irritable,anxious,interrupted sleep,tremor,nausea,pain in the body Objective: 03/10/20 09:55 Vital Signs Temperature 97.1 F L 03/10/20 08:29 Pulse Rate 67 03/10/20 08:29 Respiratory Rate 18 03/10/20 08:29 Blood Pressure 130/65 03/10/20 08:29 O2 Sat by Pulse Oximetry (%) 97 03/10/20 05:41 Laboratory Last Values WBC 8.4 K/mm3 (4.0-10.0) 03/09/20 12:10 RBC 4.02 M/mm3 (4.00-5.60) 03/09/20 12:10 Hgb 13.5 GM/dL (11.7-16.9) 03/09/20 12:10 Hct 40.7 % (35.4-49) 03/09/20 12:10 MCV 101.3 fl (80-96) H 03/09/20 12:10 MCH 33.5 pg (25.7-33.7) 03/09/20 12:10 MCHC 33.1 g/dl (32.0-35.9) 03/09/20 12:10 RDW 13.4 % (11.9-15.9) 03/09/20 12:10 Plt Count 368 K/MM3 (134-434) 03/09/20 12:10 MPV 7.9 fl (7.5-11.1) 03/09/20 12:10 Sodium 140 mmol/L (136-145) 03/09/20 12:10 Potassium 4.5 mmol/L (3.5-5.1) 03/09/20 12:10 Chloride 106 mmol/L (98-107) 03/09/20 12:10 Carbon Dioxide 29 mmol/L (21-32) 03/09/20 12:10 Anion Gap 6 MMOL/L (8-16) L 03/09/20 12:10 BUN 19.0 mg/dL (7-18) H 03/09/20 12:10 Creatinine 1.0 mg/dL (0.55-1.3) 03/09/20 12:10 Est GFR (CKD-EPI)AfAm 95.06 03/09/20 12:10 Est GFR (CKD-EPI)NonAf 82.02 03/09/20 12:10 Random Glucose 91 mg/dL (74-106) 03/09/20 12:10 Calcium 9.5 mg/dL (8.5-10.1) 03/09/20 12:10 Total Bilirubin 0.2 mg/dL (0.2-1) 03/09/20 12:10 AST 23 U/L (15-37) 03/09/20 12:10 ALT 23 U/L (13-61) 03/09/20 12:10 Alkaline Phosphatase 82 U/L (45-117) 03/09/20 12:10 Total Protein 7.2 g/dl (6.4-8.2) 03/09/20 12:10 Albumin 4.0 g/dl (3.4-5.0) 03/09/20 12:10 Syphilis Serology Reactive (NONREACTIVE) A* 03/09/20 12:10 HIV Ag/Ab Combo Qual Negative (NEGATIVE) 03/09/20 12:10 Assessment: 03/10/20 09:56 withdrawal symptom
[2020-03-10] MEDS: PRENATAL VITAMINS W/ FOLIC ACID TABLET (FP) PO SCH (10:50)
[2020-03-10] MEDS: NICOTINE 7 MG/24 HOURS TOPICAL PATCH TD SCH (10:51)
--- NOTE | 2020-03-10 11:47 | PN ---
S Progress Note Note: Laboratory Last Values WBC 8.4 K/mm3 (4.0-10.0) 03/09/20 12:10 RBC 4.02 M/mm3 (4.00-5.60) 03/09/20 12:10 Hgb 13.5 GM/dL (11.7-16.9) 03/09/20 12:10 Hct 40.7 % (35.4-49) 03/09/20 12:10 MCV 101.3 fl (80-96) H 03/09/20 12:10 MCH 33.5 pg (25.7-33.7) 03/09/20 12:10 MCHC 33.1 g/dl (32.0-35.9) 03/09/20 12:10 RDW 13.4 % (11.9-15.9) 03/09/20 12:10 Plt Count 368 K/MM3 (134-434) 03/09/20 12:10 MPV 7.9 fl (7.5-11.1) 03/09/20 12:10 Sodium 140 mmol/L (136-145) 03/09/20 12:10 Potassium 4.5 mmol/L (3.5-5.1) 03/09/20 12:10 Chloride 106 mmol/L (98-107) 03/09/20 12:10 Carbon Dioxide 29 mmol/L (21-32) 03/09/20 12:10 Anion Gap 6 MMOL/L (8-16) L 03/09/20 12:10 BUN 19.0 mg/dL (7-18) H 03/09/20 12:10 Creatinine 1.0 mg/dL (0.55-1.3) 03/09/20 12:10 Est GFR (CKD-EPI)AfAm 95.06 03/09/20 12:10 Est GFR (CKD-EPI)NonAf 82.02 03/09/20 12:10 Random Glucose 91 mg/dL (74-106) 03/09/20 12:10 Calcium 9.5 mg/dL (8.5-10.1) 03/09/20 12:10 Total Bilirubin 0.2 mg/dL (0.2-1) 03/09/20 12:10 AST 23 U/L (15-37) 03/09/20 12:10 ALT 23 U/L (13-61) 03/09/20 12:10 Alkaline Phosphatase 82 U/L (45-117) 03/09/20 12:10 Total Protein 7.2 g/dl (6.4-8.2) 03/09/20 12:10 Albumin 4.0 g/dl (3.4-5.0) 03/09/20 12:10 Syphilis Serology Reactive (NONREACTIVE) A* 03/09/20 12:10 RPR Titer Reactive 1:1 (NONREACTIVE) H D 03/09/20 12:10 HIV Ag/Ab Combo Qual Negative (NEGATIVE) 03/09/20 12:10 patient was adequately treated for syphilis 30 years ago with 3 injections not sexually active continue detox librium regimen
[2020-03-10] MEDS: THIAMINE HCL 100 MG TABLET (FP) PO SCH (22:19)
[2020-03-10] MEDS: QUEtiapine FUMARATE 100 MG TABLET (FP) PO SCH (22:19)
[2020-03-10] MEDS: MELATONIN 5 MG TABLETS PO SCH (23:03)
[2020-03-11] MEDS: chlordiazePOXIDE HCL 25 MG CAPSULE PO SCH ×4 (05:26→22:26)
[2020-03-11] MEDS: PRENATAL VITAMINS W/ FOLIC ACID TABLET (FP) PO SCH (10:36)
[2020-03-11] MEDS: NICOTINE 7 MG/24 HOURS TOPICAL PATCH TD SCH (10:36)
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
[2020-03-11] MEDS ORDERED: QUEtiapine FUMARATE 50 MG TABLET PO ONE (11:30)
--- NOTE | 2020-03-11 11:32 | PN ---
S CIWA - CIWA Score Nausea/Vomitin Muscle Tremors: 2 Anxiety: 2 Agitation: 1-Slight > Activity Paroxysmal Sweats: No Perspiration Orientation: 0-Oriented Tacttile Disturbances: 0-None Auditory Disturbances: 0-None Visual Disturbances: 0-None Headache: 1-Very Mild CIWA-Ar Total Score: 8 S Progress Note (SOAP) Subjective: alert,irritable,anxious,interrupted sleep,pain in the body Objective: 03/11/20 11:31 Vital Signs Temperature 98.0 F 03/11/20 08:38 Pulse Rate 70 03/11/20 08:38 Respiratory Rate 18 03/11/20 08:38 Blood Pressure 117/69 03/11/20 08:38 O2 Sat by Pulse Oximetry (%) 96 03/11/20 05:43 03/11/20 11:33 Laboratory Last Values WBC 8.4 K/mm3 (4.0-10.0) 03/09/20 12:10 RBC 4.02 M/mm3 (4.00-5.60) 03/09/20 12:10 Hgb 13.5 GM/dL (11.7-16.9) 03/09/20 12:10 Hct 40.7 % (35.4-49) 03/09/20 12:10 MCV 101.3 fl (80-96) H 03/09/20 12:10 MCH 33.5 pg (25.7-33.7) 03/09/20 12:10 MCHC 33.1 g/dl (32.0-35.9) 03/09/20 12:10 RDW 13.4 % (11.9-15.9) 03/09/20 12:10 Plt Count 368 K/MM3 (134-434) 03/09/20 12:10 MPV 7.9 fl (7.5-11.1) 03/09/20 12:10 Sodium 140 mmol/L (136-145) 03/09/20 12:10 Potassium 4.5 mmol/L (3.5-5.1) 03/09/20 12:10 Chloride 106 mmol/L (98-107) 03/09/20 12:10 Carbon Dioxide 29 mmol/L (21-32) 03/09/20 12:10 Anion Gap 6 MMOL/L (8-16) L 03/09/20 12:10 BUN 19.0 mg/dL (7-18) H 03/09/20 12:10 Creatinine 1.0 mg/dL (0.55-1.3) 03/09/20 12:10 Est GFR (CKD-EPI)AfAm 95.06 03/09/20 12:10 Est GFR (CKD-EPI)NonAf 82.02 03/09/20 12:10 Random Glucose 91 mg/dL (74-106) 03/09/20 12:10 Calcium 9.5 mg/dL (8.5-10.1) 03/09/20 12:10 Total Bilirubin 0.2 mg/dL (0.2-1) 03/09/20 12:10 AST 23 U/L (15-37) 03/09/20 12:10 ALT 23 U/L (13-61) 03/09/20 12:10 Alkaline Phosphatase 82 U/L (45-117) 03/09/20 12:10 Total Protein 7.2 g/dl (6.4-8.2) 03/09/20 12:10 Albumin 4.0 g/dl (3.4-5.0) 03/09/20 12:10 Syphilis Serology Reactive (NONREACTIVE) A* 03/09/20 12:10 RPR Titer Reactive 1:1 (NONREACTIVE) H D 03/09/20 12:10 COVID-19 (LYN) Not detected (Not Detected) 03/09/20 12:10 HIV Ag/Ab Combo Qual Negative (NEGATIVE) 03/09/20 12:10 Assessment: 03/11/20 11:32 withdrawal symptom Plan: continue detox librium regimen
[2020-03-11] MEDS ORDERED: QUEtiapine FUMARATE 200 MG TABLET PO SCH (22:00)
[2020-03-11] MEDS: THIAMINE HCL 100 MG TABLET (FP) PO SCH (22:26)
[2020-03-11] MEDS: MELATONIN 5 MG TABLETS PO SCH (22:28)
[2020-03-12] MEDS ORDERED: chlordiazePOXIDE HCL 10 MG CAPSULE PO PRN
[2020-03-12] MEDS ORDERED: chlordiazePOXIDE HCL 10 MG CAPSULE PO SCH (05:00)
--- NOTE | 2020-03-12 09:03 | PN ---
[facility] CIWA - CIWA Score Nausea/Vomitin-No Nausea/No Vomiting Muscle Tremors: None Anxiety: 1-Mildly Anxious Agitation: 0-Normal Activity Paroxysmal Sweats: No Perspiration Orientation: 0-Oriented Tacttile Disturbances: 0-None Auditory Disturbances: 0-None Visual Disturbances: 0-None Headache: 0-None Present CIWA-Ar Total Score: 1 S Progress Note (SOAP) Subjective: alert,no complaint Objective: 03/12/20 09:01 Vital Signs Temperature 96.9 F L 03/12/20 05:50 Pulse Rate 63 03/12/20 05:50 Respiratory Rate 18 03/12/20 05:50 Blood Pressure 120/67 03/12/20 05:50 O2 Sat by Pulse Oximetry (%) 97 03/12/20 05:50 03/12/20 09:02 no withdrawal symptom Assessment: 03/12/20 09:02 no withdrawal symptom Plan: patient is stable for discharge today,follow up with after care program as arrangement
--- NOTE | 2020-03-12 09:04 | DS ---
[facility] Detox Discharge Summary Admission Date: 03/09/20 Discharge Date: 03/12/20 - History Present History: Alcohol Dependence, Cocaine Dependence Additional Comments: alert,oriented x 3 ambulation on the unit lung clear,bilaterally abdomen soft,no pain,no tenderness stable for discharge follow up with after care program as [facility] out patient left the unit in stable condition total time of discharge spending 35 minutes Pertinent Past History: bipolar 2 disorder ptsd history of syphilis nicotine dependence - Physical Exam Results Vital Signs: Vital Signs Temperature 96.9 F L 03/12/20 05:50 Pulse Rate 63 03/12/20 05:50 Respiratory Rate 18 03/12/20 05:50 Blood Pressure 120/67 03/12/20 05:50 O2 Sat by Pulse Oximetry (%) 97 03/12/20 05:50 Pertinent Admission Physical Exam Findings: withdrawal signs and symptom Laboratory Last Values WBC 8.4 K/mm3 (4.0-10.0) 03/09/20 12:10 RBC 4.02 M/mm3 (4.00-5.60) 03/09/20 12:10 Hgb 13.5 GM/dL (11.7-16.9) 03/09/20 12:10 Hct 40.7 % (35.4-49) 03/09/20 12:10 MCV 101.3 fl (80-96) H 03/09/20 12:10 MCH 33.5 pg (25.7-33.7) 03/09/20 12:10 MCHC 33.1 g/dl (32.0-35.9) 03/09/20 12:10 RDW 13.4 % (11.9-15.9) 03/09/20 12:10 Plt Count 368 K/MM3 (134-434) 03/09/20 12:10 MPV 7.9 fl (7.5-11.1) 03/09/20 12:10 Sodium 140 mmol/L (136-145) 03/09/20 12:10 Potassium 4.5 mmol/L (3.5-5.1) 03/09/20 12:10 Chloride 106 mmol/L (98-107) 03/09/20 12:10 Carbon Dioxide 29 mmol/L (21-32) 03/09/20 12:10 Anion Gap 6 MMOL/L (8-16) L 03/09/20 12:10 BUN 19.0 mg/dL (7-18) H 03/09/20 12:10 Creatinine 1.0 mg/dL (0.55-1.3) 03/09/20 12:10 Est GFR (CKD-EPI)AfAm 95.06 03/09/20 12:10 Est GFR (CKD-EPI)NonAf 82.02 03/09/20 12:10 Random Glucose 91 mg/dL (74-106) 03/09/20 12:10 Calcium 9.5 mg/dL (8.5-10.1) 03/09/20 12:10 Total Bilirubin 0.2 mg/dL (0.2-1) 03/09/20 12:10 AST 23 U/L (15-37) 03/09/20 12:10 ALT 23 U/L (13-61) 03/09/20 12:10 Alkaline Phosphatase 82 U/L (45-117) 03/09/20 12:10 Total Protein 7.2 g/dl (6.4-8.2) 03/09/20 12:10 Albumin 4.0 g/dl (3.4-5.0) 03/09/20 12:10 Syphilis Serology Reactive (NONREACTIVE) A* 03/09/20 12:10 RPR Titer Reactive 1:1 (NONREACTIVE) H D 03/09/20 12:10 COVID-19 (LYN) Not detected (Not Detected) 03/09/20 12:10 HIV Ag/Ab Combo Qual Negative (NEGATIVE) 03/09/20 12:10 Vital Signs Temperature 96.9 F L 03/12/20 05:50 Pulse Rate 63 03/12/20 05:50 Respiratory Rate 18 03/12/20 05:50 Blood Pressure 120/67 03/12/20 05:50 O2 Sat by Pulse Oximetry (%) 97 03/12/20 05:50 - Treatment Hospital Course: Detox Protocol Followed, Detoxed Safely, Responded well, Discharged Condition Good Patient has Accepted a Rehab Referral to: declined - Medication Discharge Medications: Ambulatory Orders Quetiapine Fumarate [Seroquel -] 100 mg PO HS 03/09/20 - Diagnosis (1) Alcohol dependence with uncomplicated withdrawal Current Visit: Yes Status: Acute (2) History of syphilis Current Visit: Yes Status: Acute (3) Cocaine dependence Current Visit: Yes Status: Acute Qualifiers: Substance use status: uncomplicated Qualified Code(s): F14.20 - Cocaine dependence, uncomplicated (4) Nicotine dependence Current Visit: Yes Status: Chronic Qualifiers: Nicotine product type: cigarettes (5) PTSD (post-traumatic stress disorder) Current Visit: Yes Status: Chronic (6) Bipolar II disorder Current Visit: No Status: Chronic (7) History of BCG vaccination Current Visit: No Status: Chronic - AMA Did Patient Leave Against Medical Advice: No
--- NOTE | 2020-03-12 09:14 | PN ---
[facility] Progress Note Note: Patient is discharged today. Scripts for 30 days supply of Seroquel 200 mg/hs is electronically transmitted to [facility],[address] [place] [id number]
[2020-03-12 09:16] VITALS: BP 134/77; PULSE 77; TEMP 98
[2020-03-13] MEDS ORDERED: chlordiazePOXIDE HCL 10 MG CAPSULE PO SCH (05:00)
[2020-03-14] MEDS ORDERED: chlordiazePOXIDE HCL 10 MG CAPSULE PO ONE (05:00)
== END 2020-03-12 08:25 | disposition home or self-care (01) | DRG 897 ==
LOC: YASAS 11:02 → Y6N 12:00
PROVIDERS: ADMIT Allergy & Immunology; ATTEND Allergy & Immunology
PROC: HZ2ZZZZ Detoxification Services for Substance Abuse Treatment (ICD-10-PCS; principal; 2020-03-09)
DX: F10.230 Alcohol dependence with withdrawal, uncomplicated (principal); F14.20 Cocaine dependence, uncomplicated; F19.282 Other psychoactive substance dependence with psychoactive substance-induced sleep disorder; F31.81 Bipolar II disorder; F17.210 Nicotine dependence, cigarettes, uncomplicated; F10.282 Alcohol dependence with alcohol-induced sleep disorder; F19.24 Other psychoactive substance dependence with psychoactive substance-induced mood disorder; F43.10 Post-traumatic stress disorder, unspecified; Z62.810 Personal history of physical and sexual abuse in childhood; Z92.29 Personal history of other drug therapy; Z86.19 Personal history of other infectious and parasitic diseases; Z56.0 Unemployment, unspecified; Z91.018 Allergy to other foods
CPT/HCPCS: 36415; 71045-TC-FY; 80053; 85027; 86593; 86780; 87389; U0003

== ENCOUNTER 2021-12-07 13:10 | Inpatient (IN) | payer OTHER ==
[2021-12-07] MEDS ORDERED: MAG HYDROX/AL HYDROX/SIMETH 30 ML UNIT-DOSE CUP PO PRN (14:05)
[2021-12-07] MEDS ORDERED: MAGNESIUM HYDROX 2400MG/30ML ORAL SUSPENSION 30 ML CUP PO PRN (14:05)
[2021-12-07] MEDS ORDERED: chlordiazePOXIDE HCL 25 MG CAPSULE PO PRN (14:05)
[2021-12-07] MEDS ORDERED: LOPERAMIDE HCL 2 MG CAPSULE PO PRN (14:05)
[2021-12-07] MEDS ORDERED: NICOTINE 10 MG CARTRIDGE (INHALER) IH PRN (14:05)
[2021-12-07] MEDS ORDERED: METHOCARBAMOL 500 MG TABLET PO PRN (14:05)
[2021-12-07] MEDS ORDERED: MENTHOL/PHENOL 1 EACH UD MM PRN (14:05)
[2021-12-07] MEDS ORDERED: IBUPROFEN 400 MG TABLET (FP) PO PRN (14:05)
[2021-12-07] MEDS ORDERED: ACETAMINOPHEN 325 MG TABLET (FP) PO PRN ×2 (14:05)
[2021-12-07] MEDS ORDERED: BISMUTH SUBSALICYLATE 524 MG/30 ML PO PRN (14:05)
[2021-12-07] MEDS ORDERED: MAGNESIUM CITRATE 300 ML BOTTLE PO PRN (14:05)
[2021-12-07] MEDS ORDERED: ONDANSETRON *ODT* 4 MG TABLET SL PRN (14:05)
[2021-12-07 15:06] VITALS: BMI 21.9
[2021-12-07 18:09] LABS: HEMATOCRIT 42.7 % (35.4-49); HEMOGLOBIN 14.2 GM/dL (11.7-16.9); MCHC 33.2 g/dl (32.0-35.9); MEAN CELL VOLUME 99.3 fl (80-96); MEAN PLT VOLUME 7.6 fl (7.5-11.1); PLATELET COUNT 419 10^3/uL (134-434); RDW 13.3 % (11.9-15.9); WHITE BLOOD COUNT 5.2 K/mm3 (4.0-10.0)
[2021-12-07 18:16] LABS: ALBUMIN 3.6 g/dl (3.4-5.0); BLOOD UREA NITROGEN 7.9 mg/dL (7-18)
[2021-12-07] MEDS: PRENATAL VITAMINS W/ FOLIC ACID TABLET (FP) PO SCH (18:17)
[2021-12-07] MEDS: chlordiazePOXIDE HCL 25 MG CAPSULE PO SCH ×2 (18:18→22:26)
[2021-12-07] MEDS: NICOTINE 7 MG/24 HOURS TOPICAL PATCH TD SCH (18:19)
[2021-12-07] MEDS: hydrOXYzine PAMOATE 25 MG CAPSULE (FP) PO SCH ×2 (18:19→22:25)
[2021-12-07 18:21] LABS: BILIRUBIN,TOTAL 0.5 mg/dL (0.2-1); TOT PROT 6.9 g/dl (6.4-8.2)
[2021-12-07] MEDS: MELATONIN 5 MG TABLETS PO SCH (22:24)
[2021-12-07] MEDS: THIAMINE HCL 100 MG TABLET (FP) PO SCH (22:24)
[2021-12-08] MEDS: chlordiazePOXIDE HCL 25 MG CAPSULE PO SCH ×4 (05:35→22:11)
[2021-12-08] MEDS: hydrOXYzine PAMOATE 25 MG CAPSULE (FP) PO SCH ×5 (05:36→22:11)
[2021-12-08] MEDS: PRENATAL VITAMINS W/ FOLIC ACID TABLET (FP) PO SCH (10:52)
[2021-12-08] MEDS: NICOTINE 7 MG/24 HOURS TOPICAL PATCH TD SCH (10:53)
[2021-12-08] MEDS ORDERED: QUEtiapine FUMARATE 100 MG TABLET (FP) PO SCH (22:00)
[2021-12-08] MEDS: THIAMINE HCL 100 MG TABLET (FP) PO SCH (22:11)
[2021-12-08] MEDS: MELATONIN 5 MG TABLETS PO SCH (22:15)
[2021-12-09] MEDS: hydrOXYzine PAMOATE 25 MG CAPSULE (FP) PO SCH ×2 (05:47→10:45)
[2021-12-09] MEDS: chlordiazePOXIDE HCL 25 MG CAPSULE PO SCH ×2 (05:47→10:45)
[2021-12-09 10:06] VITALS: BP 113/69; PULSE 77; TEMP 97.8
[2021-12-09] MEDS: PRENATAL VITAMINS W/ FOLIC ACID TABLET (FP) PO SCH (10:45)
[2021-12-09] MEDS: NICOTINE 7 MG/24 HOURS TOPICAL PATCH TD SCH (10:45)
[2021-12-10] MEDS ORDERED: chlordiazePOXIDE HCL 10 MG CAPSULE PO PRN
[2021-12-10] MEDS ORDERED: chlordiazePOXIDE HCL 10 MG CAPSULE PO SCH (05:00)
[2021-12-11] MEDS ORDERED: chlordiazePOXIDE HCL 10 MG CAPSULE PO SCH (05:00)
[2021-12-12] MEDS ORDERED: chlordiazePOXIDE HCL 10 MG CAPSULE PO ONE (05:00)
== END 2021-12-09 11:35 | disposition home or self-care (01) | DRG 897 ==
LOC: YASAS 13:10 → Y6N 15:34
PROVIDERS: ADMIT Allergy & Immunology; ATTEND Allergy & Immunology
PROC: HZ2ZZZZ Detoxification Services for Substance Abuse Treatment (ICD-10-PCS; principal; 2021-12-07)
DX: F10.230 Alcohol dependence with withdrawal, uncomplicated (principal); F14.20 Cocaine dependence, uncomplicated; F19.282 Other psychoactive substance dependence with psychoactive substance-induced sleep disorder; F31.81 Bipolar II disorder; F17.210 Nicotine dependence, cigarettes, uncomplicated; F19.24 Other psychoactive substance dependence with psychoactive substance-induced mood disorder; F43.10 Post-traumatic stress disorder, unspecified; G47.00 Insomnia, unspecified; Z62.810 Personal history of physical and sexual abuse in childhood; Z86.19 Personal history of other infectious and parasitic diseases
CPT/HCPCS: 36415; 80053; 85027; 86593; 86780; 87811; 93005; 93010; C9803-CS; U0003; U0005

== ENCOUNTER 2022-12-19 17:26 | Inpatient (IN) | payer OTHER ==
[2022-12-19 18:14] VITALS: BMI 20.9
[2022-12-19] MEDS ORDERED: BENZONATATE 200 MG CAPSULE PO PRN (18:31)
[2022-12-19] MEDS ORDERED: IBUPROFEN 600 MG TABLET (FP) PO PRN (18:31)
[2022-12-19] MEDS ORDERED: ONDANSETRON *ODT* 4 MG TABLET SL PRN (18:31)
[2022-12-19] MEDS ORDERED: NICOTINE 10 MG CARTRIDGE (INHALER) IH PRN (18:31)
[2022-12-19] MEDS ORDERED: BISMUTH SUBSALICYLATE 524 MG/30 ML PO PRN (18:31)
[2022-12-19] MEDS ORDERED: ACETAMINOPHEN 325 MG TABLET (FP) PO PRN (18:31)
[2022-12-19] MEDS ORDERED: guaiFENesin 600 MG TABLET.ER (FP) PO PRN (18:31)
[2022-12-19] MEDS ORDERED: NICOTINE POLACRILEX 2 MG GUM BUC PRN (18:31)
[2022-12-19] MEDS ORDERED: P-EPHED 60MG/TRIPROLIDI 2.5MG TABLET PO PRN (18:31)
[2022-12-19] MEDS ORDERED: MAGNESIUM HYDROX 2400MG/30ML ORAL SUSPENSION 30 ML CUP PO PRN (18:31)
[2022-12-19] MEDS ORDERED: LOPERAMIDE HCL 2 MG CAPSULE PO PRN (18:31)
[2022-12-19] MEDS ORDERED: POLYETHYLENE GLYCOL (HEALTHYLAX) 3350 17 GM PACKET PO PRN (18:31)
[2022-12-19] MEDS ORDERED: IBUPROFEN 400 MG TABLET (FP) PO PRN (18:31)
[2022-12-19] MEDS ORDERED: DICYCLOMINE HCL 10 MG CAPSULE PO PRN (18:31)
[2022-12-19] MEDS ORDERED: BENZOCAINE/MENTHOL (CHLORASEPTIC ) LOZENGE MM PRN (18:31)
[2022-12-19] MEDS: hydrOXYzine PAMOATE 25 MG CAPSULE (FP) PO PRN (22:12)
[2022-12-19] MEDS: THIAMINE HCL 100 MG TABLET (FP) PO SCH (22:12)
[2022-12-20] MEDS ORDERED: chlordiazePOXIDE HCL 25 MG CAPSULE PO PRN (08:32)
[2022-12-20] MEDS: hydrOXYzine PAMOATE 25 MG CAPSULE (FP) PO PRN (10:10)
[2022-12-20] MEDS: chlordiazePOXIDE HCL 25 MG CAPSULE PO SCH ×3 (10:10→22:40)
[2022-12-20] MEDS: PRENATAL VITAMINS W/ FOLIC ACID TABLET (FP) PO SCH (10:10)
[2022-12-20 12:32] LABS: HEMATOCRIT 37.8 % (35.4-49); HEMOGLOBIN 12.7 GM/dL (11.7-16.9); MCH 32.8 pg (25.7-33.7); MCHC 33.6 g/dl (32.0-35.9); MEAN CELL VOLUME 97.5 fl (80-96); MEAN PLT VOLUME 7.7 fl (7.5-11.1); PLATELET COUNT 400 10^3/uL (134-434); RBC 3.87 M/mm3 (4.00-5.60); RDW 12.6 % (11.9-15.9); WHITE BLOOD COUNT 4.8 K/mm3 (4.0-10.0)
[2022-12-20 12:34] LABS: ALBUMIN 3.1 g/dl (3.4-5.0)
[2022-12-20 12:35] LABS: BLOOD UREA NITROGEN 14.7 mg/dL (7-18); CALCIUM 9.2 mg/dL (8.5-10.1)
[2022-12-20 12:37] LABS: CREATININE 0.9 mg/dL (0.55-1.3)
[2022-12-20 12:38] LABS: TOT PROT 5.9 g/dl (6.4-8.2)
[2022-12-20 12:39] LABS: BILIRUBIN,TOTAL 0.4 mg/dL (0.2-1)
[2022-12-20] MEDS: THIAMINE HCL 100 MG TABLET (FP) PO SCH (22:40)
[2022-12-20] MEDS: MELATONIN 5 MG TABLETS PO PRN (22:40)
[2022-12-20] MEDS: QUEtiapine FUMARATE 100 MG TABLET (FP) PO SCH (22:41)
[2022-12-21] MEDS: chlordiazePOXIDE HCL 25 MG CAPSULE PO SCH ×4 (05:09→22:00)
[2022-12-21] MEDS: hydrOXYzine PAMOATE 25 MG CAPSULE (FP) PO PRN (10:11)
[2022-12-21] MEDS: PRENATAL VITAMINS W/ FOLIC ACID TABLET (FP) PO SCH (10:11)
[2022-12-21] MEDS: THIAMINE HCL 100 MG TABLET (FP) PO SCH (22:00)
[2022-12-21] MEDS: QUEtiapine FUMARATE 100 MG TABLET (FP) PO SCH (22:00)
[2022-12-22] MEDS: chlordiazePOXIDE HCL 25 MG CAPSULE PO SCH ×4 (05:12→22:08)
[2022-12-22] MEDS: PRENATAL VITAMINS W/ FOLIC ACID TABLET (FP) PO SCH (10:37)
[2022-12-22] MEDS: MAG HYDROX/AL HYDROX/SIMETH 30 ML UNIT-DOSE CUP PO PRN (18:19)
[2022-12-22] MEDS: MELATONIN 5 MG TABLETS PO PRN (22:07)
[2022-12-22] MEDS: QUEtiapine FUMARATE 100 MG TABLET (FP) PO SCH (22:08)
[2022-12-22] MEDS: THIAMINE HCL 100 MG TABLET (FP) PO SCH (22:08)
[2022-12-23] MEDS ORDERED: chlordiazePOXIDE HCL 10 MG CAPSULE PO PRN
[2022-12-23] MEDS: chlordiazePOXIDE HCL 10 MG CAPSULE PO SCH ×4 (05:12→22:23)
[2022-12-23] MEDS: PRENATAL VITAMINS W/ FOLIC ACID TABLET (FP) PO SCH (10:07)
[2022-12-23] MEDS: hydrOXYzine PAMOATE 25 MG CAPSULE (FP) PO PRN (10:07)
[2022-12-23] MEDS: MAG HYDROX/AL HYDROX/SIMETH 30 ML UNIT-DOSE CUP PO PRN (10:08)
[2022-12-23] MEDS: THIAMINE HCL 100 MG TABLET (FP) PO SCH (21:53)
[2022-12-23] MEDS: QUEtiapine FUMARATE 100 MG TABLET (FP) PO SCH (21:53)
[2022-12-24] MEDS ORDERED: chlordiazePOXIDE HCL 10 MG CAPSULE PO SCH (05:00)
[2022-12-24 09:45] VITALS: BP 120/65; PULSE 76; RESP 18; TEMP 97.5
[2022-12-25] MEDS ORDERED: chlordiazePOXIDE HCL 10 MG CAPSULE PO ONE (05:00)
== END 2022-12-24 08:40 | disposition home or self-care (01) | DRG 897 ==
LOC: YASAS 17:26 → Y6N 18:31 → UNDOADMIN 18:51 → Y6N 18:51
PROVIDERS: ADMIT Allergy & Immunology; ATTEND Surgery
PROC: HZ2ZZZZ Detoxification Services for Substance Abuse Treatment (ICD-10-PCS; principal; 2022-12-19)
DX: F10.230 Alcohol dependence with withdrawal, uncomplicated (principal); F14.20 Cocaine dependence, uncomplicated; F17.210 Nicotine dependence, cigarettes, uncomplicated; F43.10 Post-traumatic stress disorder, unspecified; R76.8 Other specified abnormal immunological findings in serum; Z62.810 Personal history of physical and sexual abuse in childhood; Z86.19 Personal history of other infectious and parasitic diseases
CPT/HCPCS: 36415; 71046-TC-FY; 80053; 85027; 86593; 86780; C9803-CS; U0003; U0005

== ENCOUNTER 2023-01-13 10:48 | Inpatient (IN) | payer OTHER ==
[2023-01-13 11:12] VITALS: BMI 21.6
[2023-01-13] MEDS ORDERED: BENZONATATE 200 MG CAPSULE PO PRN (11:31)
[2023-01-13] MEDS ORDERED: BISMUTH SUBSALICYLATE 262 MG/15 ML BTL PO PRN (11:31)
[2023-01-13] MEDS ORDERED: NALOXONE HCL 0.4 MG/ML VIAL IM PRN (11:31)
[2023-01-13] MEDS ORDERED: guaiFENesin 600 MG TABLET.ER (FP) PO PRN (11:31)
[2023-01-13] MEDS ORDERED: NALOXONE HCL (KLOXXADO) 8 MG SPRAY NS PRN (11:31)
[2023-01-13] MEDS ORDERED: hydrOXYzine PAMOATE 25 MG CAPSULE (FP) PO PRN (11:31)
[2023-01-13] MEDS ORDERED: NICOTINE 7 MG/24 HOURS TOPICAL PATCH TD PRN (11:31)
[2023-01-13] MEDS ORDERED: P-EPHED 60MG/TRIPROLIDI 2.5MG TABLET PO PRN (11:31)
[2023-01-13] MEDS ORDERED: ONDANSETRON *ODT* 4 MG TABLET SL PRN (11:31)
[2023-01-13] MEDS ORDERED: NICOTINE POLACRILEX 2 MG GUM BUC PRN (11:31)
[2023-01-13] MEDS ORDERED: LOPERAMIDE HCL 2 MG CAPSULE PO PRN (11:31)
[2023-01-13] MEDS ORDERED: IBUPROFEN 600 MG TABLET (FP) PO PRN (11:31)
[2023-01-13] MEDS ORDERED: BENZOCAINE/MENTHOL (CHLORASEPTIC ) LOZENGE MM PRN (11:31)
[2023-01-13] MEDS ORDERED: IBUPROFEN 400 MG TABLET (FP) PO PRN (11:31)
[2023-01-13] MEDS ORDERED: MAGNESIUM HYDROX 2400MG/30ML ORAL SUSPENSION 30 ML CUP PO PRN (11:31)
[2023-01-13] MEDS ORDERED: MAG HYDROX/AL HYDROX/SIMETH 30 ML UNIT-DOSE CUP PO PRN (11:31)
[2023-01-13] MEDS ORDERED: ACETAMINOPHEN 325 MG TABLET (FP) PO PRN (11:31)
[2023-01-13] MEDS ORDERED: POLYETHYLENE GLYCOL (HEALTHYLAX) 3350 17 GM PACKET PO PRN (11:31)
[2023-01-13] MEDS ORDERED: DICYCLOMINE HCL 10 MG CAPSULE PO PRN (11:31)
[2023-01-13] MEDS: diazePAM 5 MG TABLET PO PRN ×2 (12:33→22:11)
[2023-01-13] MEDS ORDERED: MELATONIN 5 MG TABLETS PO SCH (22:00)
[2023-01-13] MEDS: THIAMINE HCL 100 MG TABLET (FP) PO SCH (22:09)
[2023-01-13] MEDS: QUEtiapine FUMARATE 100 MG TABLET (FP) PO SCH (22:09)
[2023-01-14] MEDS: diazePAM 5 MG TABLET PO PRN ×2 (10:15→21:10)
[2023-01-14] MEDS: PRENATAL VITAMINS W/ FOLIC ACID TABLET (FP) PO SCH (10:16)
[2023-01-14] MEDS: THIAMINE HCL 100 MG TABLET (FP) PO SCH (21:08)
[2023-01-14] MEDS: QUEtiapine FUMARATE 100 MG TABLET (FP) PO SCH (21:09)
[2023-01-15] MEDS: diazePAM 5 MG TABLET PO PRN ×2 (10:13→22:03)
[2023-01-15] MEDS: PRENATAL VITAMINS W/ FOLIC ACID TABLET (FP) PO SCH (10:14)
[2023-01-15] MEDS: THIAMINE HCL 100 MG TABLET (FP) PO SCH (22:02)
[2023-01-15] MEDS: QUEtiapine FUMARATE 100 MG TABLET (FP) PO SCH (22:02)
[2023-01-16] MEDS: diazePAM 5 MG TABLET PO PRN (06:25)
[2023-01-16] MEDS ORDERED: diazePAM 5 MG TABLET PO PRN (07:43)
[2023-01-16 09:25] VITALS: BP 101/50; PULSE 81; RESP 17; TEMP 98.4
[2023-01-16] MEDS ORDERED: diazePAM 5 MG TABLET PO SCH (11:00)
[2023-01-18] MEDS ORDERED: diazePAM 5 MG TABLET PO SCH (06:00)
[2023-01-19] MEDS ORDERED: diazePAM 5 MG TABLET PO SCH (06:00)
[2023-01-20] MEDS ORDERED: diazePAM 5 MG TABLET PO ONE (06:00)
== END 2023-01-16 10:29 | disposition other institution (70) | DRG 897 ==
LOC: YASAS 10:48 → Y6N 12:07
PROVIDERS: ADMIT Allergy & Immunology; ATTEND Surgery
PROC: HZ2ZZZZ Detoxification Services for Substance Abuse Treatment (ICD-10-PCS; principal; 2023-01-13)
DX: F10.230 Alcohol dependence with withdrawal, uncomplicated (principal); F14.20 Cocaine dependence, uncomplicated; F15.20 Other stimulant dependence, uncomplicated; F31.81 Bipolar II disorder; F19.282 Other psychoactive substance dependence with psychoactive substance-induced sleep disorder; F10.282 Alcohol dependence with alcohol-induced sleep disorder; F17.210 Nicotine dependence, cigarettes, uncomplicated; F19.24 Other psychoactive substance dependence with psychoactive substance-induced mood disorder; R63.4 Abnormal weight loss; Z68.21 Body mass index [BMI] 21.0-21.9, adult; Z86.19 Personal history of other infectious and parasitic diseases
CPT/HCPCS: 87811; C9803-CS; U0003; U0005